=== PATIENT | female | born 1995 | race Two or more races ===

== ENCOUNTER 2021-09-26 10:18 | Emergency (ER) | payer OTHER ==
[2021-09-26 10:33] VITALS: BP 113/76; PULSE 82; TEMP 98.1; BMI 27.8
[2021-09-26] MEDS ORDERED: SODIUM CHLORIDE 0.9% 500 ML INFUS.BAG IV ONE ×2 (10:59→13:37)
[2021-09-26] MEDS ORDERED: ACETAMINOPHEN 1000 MG/100 ML BAG IVPB ONE (10:59)
[2021-09-26] MEDS ORDERED: ACETAMINOPHEN INJECTION 100 ML IVPB ONE (11:08)
[2021-09-26 12:45] LABS: BASO % 0.4 % (0-2.0); EOS % 0.5 % (0-4.5); HEMATOCRIT 39.6 % (32.4-45.2); LYMPH % 24.1 % (8-40); MCH 29.3 pg (25.7-33.7); MCHC 32.8 g/dl (32.0-36.0); MEAN CELL VOLUME 89.5 fl (80-96); MEAN PLT VOLUME 8.8 fl (7.5-11.1); MONO % 6.1 % (3.8-10.2); NEUT % 68.9 % (42.8-82.8); PLATELET COUNT 392 10^3/uL (134-434); RBC 4.42 M/mm3 (3.60-5.2); RDW 12.6 % (11.6-15.6); WHITE BLOOD COUNT 8.4 K/mm3 (4.0-10.0)
[2021-09-26 13:00] LABS: CALCIUM 8.9 mg/dL (8.5-10.1)
[2021-09-26 13:01] LABS: ALBUMIN 4.1 g/dl (3.4-5.0); BLOOD UREA NITROGEN 10.4 mg/dL (7-18)
[2021-09-26 13:04] LABS: CREATININE 0.7 mg/dL (0.55-1.3)
[2021-09-26 13:05] LABS: TOT PROT 7.5 g/dl (6.4-8.2)
[2021-09-26 13:22] LABS: PH,URINE 5.5 (5.0-8.0); URINE APPEARANCE CLEAR; URINE BILIRUBIN NEGATIVE (NEGATIVE); URINE COLOR YELLOW; URINE GLUCOSE (UA) NEGATIVE (NEGATIVE); URINE KETONE 4+ (NEGATIVE); URINE LEUK ESTERASE NEGATIVE (NEGATIVE); URINE NITRITE NEGATIVE (NEGATIVE); URINE PROTEIN TRACE (NEGATIVE)
[2021-09-26 13:43] LABS: BILIRUBIN,TOTAL 0.6 mg/dL (0.2-1)
== END 2021-09-26 16:08 | disposition home or self-care (01) ==
LOC: JER 10:18
PROC: 3E0333Z Introduction of Anti-inflammatory into Peripheral Vein, Percutaneous Approach (ICD-10-PCS; principal; 2021-09-26)
DX: O26.891 Other specified pregnancy related conditions, first trimester (principal); R10.2 Pelvic and perineal pain; Z3A.01 Less than 8 weeks gestation of pregnancy
CPT/HCPCS: 36415; 76817-TC; 80053; 81003; 84702; 85025; 86850; 86900; 86901; 87086; 99284-25

== ENCOUNTER 2021-12-08 10:01 | Emergency (ER) | payer OTHER ==
[2021-12-08 10:11] VITALS: BP 116/67; PULSE 81; BMI 26.4
[2021-12-08 10:50] LABS: URINE APPEARANCE CLEAR; URINE BILIRUBIN NEGATIVE (NEGATIVE); URINE COLOR YELLOW; URINE GLUCOSE (UA) NEGATIVE (NEGATIVE); URINE KETONE NEGATIVE (NEGATIVE); URINE LEUK ESTERASE NEGATIVE (NEGATIVE); URINE NITRITE NEGATIVE (NEGATIVE); URINE PROTEIN NEGATIVE (NEGATIVE); URINE UROBILINOGEN 0.2 mg/dL (0.2-1.0)
[2021-12-08 11:38] VITALS: TEMP 97.8
== END 2021-12-08 11:58 | disposition home or self-care (01) ==
LOC: JER 10:01
DX: O26.892 Other specified pregnancy related conditions, second trimester (principal); R10.2 Pelvic and perineal pain; Z3A.16 16 weeks gestation of pregnancy
CPT/HCPCS: 36415; 76815; 76817-TC; 81003; 87086; 87491; 87591; 99284-25